=== PATIENT | male | born 1980 | race Caucasian/White ===

== ENCOUNTER 2018-07-17 19:18 | Emergency (ER) | payer OTHER ==
[~2018-07-17] VITALS: Ht 182.9 cm; Wt 89.8 kg
[~2018-07-17 19:18] MED LIST: CEPH500 PO; CRUTCH3 USE; HYDACE5 PO; NAPR500 PO; PRED10 PO; RXCLIN PO
[2018-07-17] MEDS ORDERED: Percocet 10-321 EACH PO (22:53)
[2018-07-17] MEDS ORDERED: Keflex500 MG PO (22:53)
== END 2018-07-18 01:00 | disposition home or self-care (01) ==
LOC: ER 19:18
DX: S81.002A Unspecified open wound, left knee, initial encounter (principal); S51.001A Unspecified open wound of right elbow, initial encounter; V29.9XXA Motorcycle rider (driver) (passenger) injured in unspecified traffic accident, initial encounter
CPT/HCPCS: 36415; 71045; 73080; 73090; 73110; 73562-LT; 90471; 90714; 96374; 96375; 96376; 99285-25; A9270; J1170; J2270; J2405; J3010